=== PATIENT | female | born 1945 | race Caucasian/White ===

== ENCOUNTER 2018-11-10 08:23 | Observation (INO) | payer MEDICARE ==
[~2018-11-10] VITALS: Ht 170.2 cm; Wt 72.1 kg
[2018-11-10] MEDS ORDERED: RANITIDINE HCL150 M1 PO (08:37)
[2018-11-10] MEDS ORDERED: STERAPRED 5MG 125 MG PO (08:37)
[2018-11-10] MEDS ORDERED: NORVASC10 MG PO (08:38)
[2018-11-10] MEDS ORDERED: AMITRIPTYLINE100 MG PO (08:38)
[2018-11-10] MEDS ORDERED: PROTONIX40 MG PO (08:38)
[2018-11-10] MEDS ORDERED: TOZAL SOFTGEL1 EACH PO (08:39)
[2018-11-10] MEDS ORDERED: FUROSEMIDE40 MG PO (08:39)
[2018-11-10] MEDS ORDERED: RESTORIL7.5 MG PO (08:39)
[2018-11-10] MEDS ORDERED: SYMBICORT 16010.2 GM INH (08:40)
[2018-11-10] MEDS ORDERED: PROVENTIL/2.5 MG/3 M INH (08:40)
[2018-11-10] MEDS ORDERED: VITAMIN D31000 UNI2 PO (08:40)
[2018-11-10 09:17] LABS: BASOPHILS 0.2 % (0-2); EOSINOPHILS 0.9 % (0-7); HEMATOCRIT 21.7 % (36.0-48.0); IMMATURE GRANULOCYTES 0.2 % (0-5); LYMPHOCYTES 2.9 % (15-50); MCHC 27.2 g/dL (31.0-37.0); MCV 65.8 fL (80.0-100.0); MEAN PLATELET VOLUME 8.8 fL (7.4-10.4); MONOCYTES 3.9 % (2-11); NEUTROPHILS 91.9 % (40-80); PLATELET COUNT 326 10x3/uL (130-400); RDW 17.5 % (11.5-14.5); WBC 9.9 10x3/uL (4.8-10.8)
[2018-11-10 09:23] LABS: HEMOGLOBIN 5.9 g/dL (12-16); MCH 17.9 pg (26.0-34.0)
[2018-11-10 09:30] LABS: ALBUMIN 3.6 g/dL (3.4-5.0); ANION GAP 12.3 mmol/L (8-16); BILIRUBIN - TOTAL 0.43 mg/dL (0.2-1.3); CALCIUM 8.4 mg/dL (8.5-10.1); CARBON DIOXIDE 30.2 mmol/L (21.0-32.0); CREATININE - SERUM 1.1 mg/dL (0.6-1.3); POTASSIUM - SERUM 3.5 mmol/L (3.5-5.1); PROTEIN - SERUM 7.3 g/dL (6.4-8.2)
[2018-11-10 09:52] LABS: IRON 11 ug/dl (35-150)
[2018-11-10 14:12] LABS: % SATURATION 2 % (15-55); TOTAL IRON BIND CAPACITY 420 ug/dl (260-445); UNSAT IRON BIND CAPACITY 409 ug/dl (150-375)
[2018-11-10 14:27] LABS: FERRITIN 8 ng/mL (3-244); LDH 231 U/L (81-234)
[2018-11-10 15:25] VITALS: BP 136/69; BMI 25.0
[2018-11-10 15:47] VITALS: BP 107/47
[2018-11-10] MEDS ORDERED: ULTRAM50 MG PO (19:52)
[2018-11-10 19:55] VITALS: BP 102/55
[2018-11-11 00:41] VITALS: BP 164/53
[2018-11-11 05:48] LABS: BASOPHILS 0.3 % (0-2); EOSINOPHILS 1.8 % (0-7); IMMATURE GRANULOCYTES 0.1 % (0-5); LYMPHOCYTES 8.6 % (15-50); MCH 21.4 pg (26.0-34.0); MCHC 30.3 g/dL (31.0-37.0); MEAN PLATELET VOLUME 9.1 fL (7.4-10.4); NEUTROPHILS 81.2 % (40-80); RBC 3.83 10x6/uL (4.00-5.40); RDW 20.7 % (11.5-14.5); WBC 6.8 10x3/uL (4.8-10.8)
[2018-11-11 05:49] LABS: HEMATOCRIT 27.1 % (36.0-48.0); HEMOGLOBIN 8.2 g/dL (12-16); MCV 70.8 fL (80.0-100.0); PLATELET COUNT 230 10x3/uL (130-400)
[2018-11-11 06:06] LABS: ALBUMIN 2.7 g/dL (3.4-5.0); BILIRUBIN - TOTAL 0.96 mg/dL (0.2-1.3); CALCIUM 7.5 mg/dL (8.5-10.1); CARBON DIOXIDE 29.4 mmol/L (21.0-32.0); CREATININE - SERUM 0.9 mg/dL (0.6-1.3); MAGNESIUM - SERUM 1.8 mg/dL (1.8-2.4); PROTEIN - SERUM 5.8 g/dL (6.4-8.2); THYROID STIMULATING HORMONE 0.99 uIU/mL (0.36-3.74)
[2018-11-11 06:12] LABS: ANION GAP 9.5 mmol/L (8-16); POTASSIUM - SERUM 2.9 mmol/L (3.5-5.1)
[2018-11-11 08:36] VITALS: BP 125/63
[2018-11-11 12:07] VITALS: BP 131/64
[2018-11-11 12:16] LABS: FOLATE (FOLIC ACID) - SERUM >20.0 ng/mL (>3.0)
[2018-11-11 12:37] LABS: HEMATOCRIT 29.8 % (36.0-48.0); HEMOGLOBIN 8.9 g/dL (12-16)
[2018-11-11 13:29] VITALS: Ht 170.2 cm; Wt 72.1 kg
[2018-11-11] MEDS ORDERED: FERROUS SULFAT325 MG PO (15:38)
[2018-11-11 16:40] VITALS: BP 114/60
== END 2018-11-11 19:33 | disposition home or self-care (01) ==
LOC: D.ER 08:23 → D.M2 10:00 → D.EDHOLD 10:00 → OBSVTIME 10:01 → D.M2 11:32
PROVIDERS: Emergency Medicine; Family Medicine; ADMIT Family Medicine; ATTEND Family Medicine
DX: I10 Essential (primary) hypertension (principal); K21.9 Gastro-esophageal reflux disease without esophagitis; J44.9 Chronic obstructive pulmonary disease, unspecified; D50.9 Iron deficiency anemia, unspecified; K44.9 Diaphragmatic hernia without obstruction or gangrene

== ENCOUNTER → 2019-05-26 08:36 | Outpatient (CLI) | payer MEDICARE ==
[2018-11-11 13:29] VITALS: BMI 24.9
[~2019-05-26 08:36] MED LIST: AMITRIPTYLINE100 MG PO; FERROUS SULFAT325 MG PO; FUROSEMIDE40 MG PO; NORVASC10 MG PO; PROTONIX40 MG PO; PROVENTIL/2.5 MG/3 M INH; RANITIDINE HCL150 M1 PO; RESTORIL7.5 MG PO; STERAPRED 5MG 125 MG PO; SYMBICORT 16010.2 GM INH; TOZAL SOFTGEL1 EACH PO; ULTRAM50 MG PO; VITAMIN D31000 UNI2 PO
[2019-05-26 09:07] LABS: BASOPHILS 0.4 % (0-2); EOSINOPHILS 4.7 % (0-7); HEMATOCRIT 37.5 % (36.0-48.0); HEMOGLOBIN 12.5 g/dL (12-16); IMMATURE GRANULOCYTES 0.1 % (0-5); LYMPHOCYTES 11.9 % (15-50); MCH 28.4 pg (26.0-34.0); MCHC 33.3 g/dL (31.0-37.0); MCV 85.2 fL (80.0-100.0); MEAN PLATELET VOLUME 9.1 fL (7.4-10.4); MONOCYTES 6.8 % (2-11); NEUTROPHILS 76.1 % (40-80); PLATELET COUNT 192 10x3/uL (130-400); RDW 12.9 % (11.5-14.5); WBC 6.8 10x3/uL (4.8-10.8)
[2019-05-26 09:33] LABS: ALBUMIN 3.5 g/dL (3.4-5.0); ANION GAP 8.7 mmol/L (8-16); BILIRUBIN - TOTAL 0.57 mg/dL (0.2-1.3); CALCIUM 8.9 mg/dL (8.5-10.1); CARBON DIOXIDE 35.9 mmol/L (21.0-32.0); PROTEIN - SERUM 6.9 g/dL (6.4-8.2)
[2019-05-26 09:40] LABS: POTASSIUM - SERUM 2.6 mmol/L (3.5-5.1)
== END | disposition home or self-care (01) ==
LOC: D.LAB 08:36
PROVIDERS: ATTEND Family Medicine
DX: E11.9 Type 2 diabetes mellitus without complications (principal); J44.9 Chronic obstructive pulmonary disease, unspecified; D64.9 Anemia, unspecified; N18.2 Chronic kidney disease, stage 2 (mild)

== ENCOUNTER → 2019-05-31 10:48 | Outpatient (CLI) | payer MEDICARE ==
[2018-11-11 13:29] VITALS: BMI 24.9
[2019-05-31 11:42] LABS: ALBUMIN 3.5 g/dL (3.4-5.0); ANION GAP 8.6 mmol/L (8-16); BILIRUBIN - TOTAL 0.5 mg/dL (0.2-1.3); CALCIUM 9.1 mg/dL (8.5-10.1); CARBON DIOXIDE 32.7 mmol/L (21.0-32.0); CREATININE - SERUM 1.1 mg/dL (0.6-1.3); POTASSIUM - SERUM 3.3 mmol/L (3.5-5.1); PROTEIN - SERUM 7.2 g/dL (6.4-8.2)
== END | disposition home or self-care (01) ==
LOC: D.LAB 10:48
PROVIDERS: ATTEND Family Medicine
DX: E87.6 Hypokalemia (principal); D64.9 Anemia, unspecified; N18.2 Chronic kidney disease, stage 2 (mild)